=== PATIENT | male | born 1990 | race Caucasian/White ===

== ENCOUNTER 2020-06-28 10:32 | Day surgery (SDC) | payer OTHER ==
[~2020-06-28] VITALS: Ht 180.3 cm; Wt 63.9 kg
[2020-06-28 11:48] VITALS: BP 124/85; PULSE 70; TEMP 98.5
--- NOTE | 2020-06-28 11:54 | NUR ---
TO [place] 4 AT 1130- CALL LIGHT IN REACH WILL CALL GIRLFRIEND FOR RIDE.
[2020-06-28 12:40] VITALS: BP 111/78; PULSE 89; TEMP 97.7
--- NOTE | 2020-06-28 12:40 | NUR ---
TO [facility] PER CART FROM PACU. DROWSY AND ORIENTED X3, AMBULATED TO RECLINER. RECEIVED WATER AND TAKING SIPS.
[2020-06-28] MEDS ORDERED: PRILOSEC 20MG20 MG PO (12:44)
[2020-06-28 12:55] VITALS: BP 107/85; PULSE 66
--- NOTE | 2020-06-28 12:55 | NUR ---
RECEIVED 2ND CUP OF WATER. PATIENT STATED THROAT IS SORE, BUT NOT TOO BAD.
[2020-06-28 13:10] VITALS: BP 109/82; PULSE 63
--- NOTE | 2020-06-28 13:15 | NUR ---
DR MCCANN INTO TALK WITH PATIENT. PATIENT TO HAVE 2ND ESOPHAGEAL DILATION IN 4 WKS.
--- NOTE | 2020-06-28 13:25 | NUR ---
RECEIVED DISCHARGE INSTRUCTIONS AND VERBALIZED UNDERSTANDING. DISCONTINUED IV AND INT- CATHETER INTACT. PATIENT GETTING DRESSED AND TEXTED GIRLFRIEND FOR RIDE.
--- NOTE | 2020-06-28 13:30 | NUR ---
DISCHARGED PER WC BY NURSING STAFF TO PRIVATE CAR IN CARE OF GIRLFRIEND.
== END 2020-06-28 13:54 | disposition home or self-care (01) ==
LOC: SDCO 10:32
DX: K22.2 Esophageal obstruction (principal); J45.909 Unspecified asthma, uncomplicated; Z20.822 Contact with and (suspected) exposure to COVID-19
CPT/HCPCS: C1769; J2704; J7030

== ENCOUNTER 2020-08-09 09:05 | Day surgery (SDC) | payer OTHER ==
[~2020-08-09] VITALS: Ht 180.3 cm; Wt 64.5 kg
[~2020-08-09 09:05] MED LIST: PRILOSEC 20MG20 MG PO
[2020-08-09] MEDS ORDERED: NO HOME MEDS (10:04)
[2020-08-09 11:20] VITALS: BP 115/88; PULSE 71; TEMP 97.5
[2020-08-09 11:35] VITALS: BP 120/89; PULSE 67
[2020-08-09 11:50] VITALS: BP 121/81; PULSE 54
--- NOTE | 2020-08-09 12:12 | NUR ---
Pt returned via cart to [place] [id number]. VS remained stable-see flowsheet. Dr Naylor in to visit with patient post procedure. Pt tolerated water and pudding. Denied needs or complaints. IV remove, catheter tip intact and pressure dressing applied. Pt dressed independently. Discharge teaching completed and pt verbalized understanding. Acknowledged need to cook pickled meat rx at [facility] pharmacy and how to take medication. Pt taken via wheelchair to private vehicle for dc home with significant other driving.
== END 2020-08-09 12:12 | disposition home or self-care (01) ==
LOC: SDCO 09:05
DX: K22.2 Esophageal obstruction (principal); K20.0 Eosinophilic esophagitis; J45.909 Unspecified asthma, uncomplicated; Z20.822 Contact with and (suspected) exposure to COVID-19; Z87.891 Personal history of nicotine dependence
CPT/HCPCS: C1726; J2704; J7030

== ENCOUNTER 2022-05-15 09:25 | Day surgery (SDC) | payer BC ==
[~2022-05-15] VITALS: Ht 175.3 cm; Wt 69.2 kg
[~2022-05-15 09:25] MED LIST changes: +NO HOME MEDS
[2022-05-15 09:56] VITALS: BP 142/99; PULSE 67; TEMP 98.2
[2022-05-15 10:53] VITALS: BP 127/93; PULSE 74; TEMP 98.2
[2022-05-15 11:08] VITALS: BP 130/98; PULSE 76
[2022-05-15 11:23] VITALS: BP 128/94; PULSE 68
--- NOTE | 2022-05-15 11:30 | NUR ---
1053 RETURNS TO ROOM 4 PER CART. AWAKE, ALERT. AMBULATES TO RECLINER WITH STANDBY ASSIST. RESP UNLABORED. DENIES NAUSEA, ABD PAIN OR DYSPHAGIA. VITAL SIGNS OBTAINED. CALL LIGHT AT SIDE. 1105 TOLERATES PO JUICE WITHOUT NAUSEA. SWALLOWS WITHOUT DIFFICULTY 1110 DISCHARGE INSTRUCTIONS REVIEWED. PATIENT VERBALIZES UNDERSTANDING. COPY PROVIDED IN DISCHARGE FOLDER 1118 DR. MCCANN HERE TO VISIT WITH PATIENT. 1120 Bakari ALEMAN CRNA NOTIFIED OF PATIENT BLOOD PRESSURE. NOW NEW ORDERS 1125 DRESSES SELF
== END 2022-05-15 11:30 | disposition home or self-care (01) ==
LOC: SDCO 09:25
DX: K22.2 Esophageal obstruction (principal); K20.0 Eosinophilic esophagitis
CPT/HCPCS: C1726; J2704; J7120

== ENCOUNTER 2022-06-12 09:00 | Day surgery (SDC) | payer BC ==
[~2022-06-12] VITALS: Ht 175.3 cm; Wt 70.0 kg
[2022-06-12 09:27] VITALS: BP 131/84; PULSE 59; TEMP 97.6
[2022-06-12] MEDS ORDERED: FLOVENT 220MCG7.9 GM IH (09:30)
[2022-06-12] MEDS ORDERED: PRILOSEC 20MG20 MG PO (09:31)
[2022-06-12 11:10] VITALS: BP 122/77; PULSE 68; TEMP 97.6
[2022-06-12 11:25] VITALS: BP 114/74; PULSE 64
[2022-06-12 11:40] VITALS: BP 114/84; PULSE 60
--- NOTE | 2022-06-12 11:50 | NUR ---
1110 RETURNS TO ROOM 3 PER CART. AMBULATES TO RECLINER WITH STANDBY ASSIST. RESP UNLABORED. DENIES NAUSEA ABD PAIN OR DYSPHAGIA. VITAL SIGNS OBTAINED. CALL LIGHT AT SIDE. 1125 TOLERATES PO JUICE AND PUDDING WITHOUT NAUSEA. SWALLOWS WITHOUT DIFFICULTY. 1135 DISCHARGE INSTRUCTIONS REVIEWED. PATIENT VERBALIZES UNDERSTANDING. COPY PROVIDED IN DISCHARGE FOLDER. 1146 DR. MCCANN HERE TO VISIT WITH PATIENT.
== END 2022-06-12 11:54 | disposition home or self-care (01) ==
LOC: SDCO 09:00
DX: K22.2 Esophageal obstruction (principal); K20.0 Eosinophilic esophagitis
CPT/HCPCS: C1726; J2704; J7120